=== PATIENT | male | born 1975 | race Hispanic/Latino ===

== ENCOUNTER 2022-09-02 17:04 | Emergency (ER) | payer SELFPAY ==
[~2022-09-02] VITALS: Ht 172.7 cm; Wt 78.0 kg
[2022-09-02] MEDS ORDERED: SODIUM CHLORIDE 0.9% 1000ML 1,000 ML IV STA (17:13)
[2022-09-02] MEDS ORDERED: ONDANSETRON HCL INJ 2MG/ML 2ML 2 MG/ML VIAL IV ONE (17:15)
[2022-09-02] MEDS ORDERED: FAMOTIDINE 20 MG/2 ML VIAL IV ONE ×2 (17:15→17:48)
[2022-09-02] MEDS ORDERED: ASPIRIN 325 MG TAB ONE (17:47)
[2022-09-02] MEDS ORDERED: ONDANSETRON HCL INJ 2MG/ML 2ML 2 MG/ML VIAL ONE (17:48)
[2022-09-02] MEDS ORDERED: SODIUM CHLORIDE 0.9% 1000ML 1,000 ML ONE (17:48)
[2022-09-02] MEDS ORDERED: ASPIRIN 81 MG CHEW TAB PO ONE (18:00)
[2022-09-02] MEDS ORDERED: MECLIZINE HCL 12.5 MG TAB ONE (18:09)
[2022-09-02] MEDS ORDERED: MECLIZINE HCL12.5 MG PO (18:14)
[2022-09-02] MEDS ORDERED: ONDANSETRON ODT4 MG PO (18:14)
[2022-09-02] MEDS ORDERED: MECLIZINE HCL 12.5 MG TAB PO ONE (18:15)
[2022-09-02] MEDS ORDERED: FAMOTIDINE20 MG PO (18:28)
[2022-09-02 20:23] VITALS: BP 141/87
== END 2022-09-02 19:00 | disposition home or self-care (01) ==
LOC: FSED 17:08
DX: R42 Dizziness and giddiness (principal); S09.90XD Unspecified injury of head, subsequent encounter; R11.2 Nausea with vomiting, unspecified; K21.9 Gastro-esophageal reflux disease without esophagitis; R94.31 Abnormal electrocardiogram [ECG] [EKG]; E11.9 Type 2 diabetes mellitus without complications
CPT/HCPCS: 70450; 71045; 80053; 82553; 84484; 85025; 85379; 87400; 93005; 94760; 99284; J2405; J7030; J8597